=== PATIENT | female | born 2005 | race Caucasian/White ===

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

== ENCOUNTER 2025-04-15 19:21 | Inpatient (IN) | payer OTHER, SELFPAY ==
[2025-04-15 19:27] VITALS: BMI 27.8
[2025-04-15 19:48] LABS: Hematocrit 31.3 % (37-47); Hemoglobin 9.6 g/dL (12.0-15.0); Immature Granulocytes Count 0.100 X10^3/uL (0.0-0.0); Mean Corp Hgb Conc 30.7 g/dL (32-36); Mean Corpuscular Volume 73.5 fL (81-99); Mean Platelet Vol. 10.0 fl (6.2-12.0); NRBC Flagged by Analyzer 0 % (0-5); Platelet Count 266 K/mm3 (150-450); RBC Distribution Width CV 16.3 % (11.6-14.6); RBC Distribution Width SD 42.9 fl (35.1-43.9); Red Blood Count 4.26 M/mm3 (4.2-5.4); White Blood Count 13.7 K/mm3 (4.4-11.0)
[2025-04-15 20:07] VITALS: BP 124/83; PULSE 113; PULSE 96; RESP 16; TEMP 36.9; O2SAT 97
[2025-04-15 20:08] VITALS: TEMP 36.8
[2025-04-15 20:39] LABS: Syphilis Antibodies Nonreactive (Nonreactive)
[2025-04-15 22:36] LABS: Barbiturate Urine NEGATIVE (< 200 ng/mL); Benzodiazepine Urine NEGATIVE (< 200 ng/mL); PCP Urine NEGATIVE (< 25 ng/mL); THC Urine PRESUMPTIVE POSITIVE (< 50 ng/mL)
[2025-04-15] MEDS: Lactated Ringers 1,000 ML 50 ML IV (23:50)
[2025-04-16] VITALS (52 sets, daily range): BP systolic 98–141; BP diastolic 56–90; PULSE 84–134; RESP 12–18; TEMP 36.1–37.1; O2SAT 93–100
[2025-04-16] MEDS: 0.9% Normal Saline Single 100 ML IV.SOLN. INTRA-UTER (02:00)
--- NOTE | 2025-04-16 02:10 | PCM.HP.OB ---
HPI - General General Date of Admission: 04/15/25 HPI Narrative EKATERINA CORLEY, is a 19 F @ 40 weeks who presents for elective IOL PFSH PFS Medical History (Updated 04/16/25 @ 02:[address] Cecile Boyce MD) Depression Anxiety POTS (postural orthostatic tachycardia syndrome) unexplained bruising Chest pain History of frequent headaches Fatigue Anemia LOC (loss of consciousness) Home Medications ?Medication ?Instructions ?Recorded ?Last Taken ?Type ferrous sulfate 325 mg (65 mg 1 tab PO DAILY anemia 05/24/19 04/14/25 11:00 History iron) tablet 1 TAB control miscellaneous n/a 08/22/19 Unknown History Held on 04/15/25. Instructions: Order Changed aspirin 81 mg tablet,delayed 81 mg PO DAILY 04/15/25 04/14/25 11:00 History release 81 mg Allergy/AdvReac Type Severity Reaction Status Date / Time amoxicillin AdvReac Rash Verified 04/15/25 19:53 Social History (Updated 04/21/21 @ 00:[address] Giancarlo Jeffers, DO) Smoking Status: Never smoker alcohol intake: never substance use type: marijuana History Elective abortions Hx Para 0 Spontaneous abortions Hx # Term Pregnancies Ectopic pregnancies Hx # Pregnancies Multiple births # of living children NST FHR Rate Baby A Baseline: 140 Variability:: Moderate Accelerations:: 15 x 15 Decelerations:: None NST Reactive:: Yes FHR Category:: Category I Uterine Activity:: q1-3min Vital Signs Vital Signs Vital Signs: 04/15/25 20:07 04/15/25 20:07 04/15/25 20:07 Temperature Temperature Source Pulse Rate 113 H 96 Respiratory Rate Blood Pressure 124/83 H BP Systolic 124 BP Diastolic 83 Pulse Ox 04/15/25 20:07 04/15/25 20:07 04/15/25 20:07 Temperature Temperature Source Temporal Pulse Rate Respiratory Rate 16 Blood Pressure BP Systolic BP Diastolic Pulse Ox 97 04/15/25 20:07 04/15/25 20:08 04/16/25 00:33 Temperature 98.4 F 98.2 F Temperature Source Pulse Rate Respiratory Rate Blood Pressure 141/79 H BP Systolic 141 BP Diastolic 79 Pulse Ox 04/16/25 00:33 04/16/25 00:33 04/16/25 00:33 Temperature 98.1 F Temperature Source Pulse Rate 101 H Respiratory Rate Blood Pressure BP Systolic BP Diastolic Pulse Ox 98 04/16/25 00:33 Temperature Temperature Source Pulse Rate Respiratory Rate 16 Blood Pressure BP Systolic BP Diastolic Pulse Ox Weight Weight: 80.83 kg Body Mass Index (BMI) 27.8 Physical Exam Narrative VE: /-3 transcervical dennison placed Const alert and oriented x3 General Appearance: cooperative HEENT normocephalic GI GI Narrative: Gravid, non tender to palpation. OB / External & Speculum: external exam normal Extremity normal to inspection Skin no rashes or lesions noted Neuro oriented x3 and CN's II-XII intact bilaterally Psych Appearance: grossly normal Labs Labs Labs: Blood Type A POSITIVE Antibody Screen NEGATIVE Hct, (37-47) 31.3 % L Hgb, (12.0-15.0) 9.6 g/dL L Syphilis Total Ab, (Nonreactive) Nonreactive Miscellaneous Test Pending Assessment & Plan (1) 40 weeks gestation of : (2) Elective induction of labor planned: (3) Anemia affecting : PLAN: Plan Admit to L&D [place] FHR/TOCO Epidural if requested for pain Monitor VS Anticipate DENNISON/Cytotec then pitocin
[2025-04-16] MEDS: Oxytocin 15 Units/NS 250ml 15 UNITS/250 ML IV.SOLN 2 UNITS IV (05:53)
[2025-04-16] MEDS: Lactated Ringers 1,000 ML 50 ML IV (07:57)
--- NOTE | 2025-04-16 08:57 | PCM.PN.OB ---
Subjective Subjective Patient comfortable with contractions Objective Data Objective Data Vital Signs: Vital Signs Temp Pulse Resp BP Pulse Ox 97.0 F L 98 18 117/75 97 04/16/25 08:37 04/16/25 08:37 04/16/25 08:37 04/16/25 08:37 04/16/25 08:37 Weight: 178 lb 3.2 oz Body Mass Index (BMI) 27.8 Intake & Output: Intake and Output for Last 24 Hours 04/14/25 04/15/25 04/16/25 23:59 23:59 23:59 Intake Total 887.53 / 887.53 Balance 887.53 / 887.53 Lab / Micro Data 04/15/25 19:35 Labs: Laboratory Results - last 24 hr 04/15/25 19:35: WBC 13.7 H, RBC 4.26, Hgb 9.6 L, Hct 31.3 L, MCV 73.5 L, MCH 22.5 L, MCHC 30.7 L, RDW Std Deviation 42.9, RDW Coeff of Prudencio 16.3 H, Plt Count 266, MPV 10.0, Immature Gran % (Auto) 0.700, Neut % (Auto) 79.8 H, Lymph % (Auto) 12.7 L, [place] % (Auto) 5.5, Eos % (Auto) 1.2, Baso % (Auto) 0.1, Absolute Neuts (auto) 11.0 H, Absolute Lymphs (auto) 1.74, Nucleated RBC % 0, Syphilis Total Ab Nonreactive, Blood Type A POSITIVE, Antibody Screen NEGATIVE 04/15/25 22:00: Urine Opiates Screen NEGATIVE, U Buprenorphine Qual NEGATIVE, Ur Oxycodone Screen NEGATIVE, Urine Methadone Screen NEGATIVE, Urine Fentanyl Screen NEGATIVE, Ur Barbiturates Screen NEGATIVE, Ur Phencyclidine Scrn NEGATIVE, Ur Amphetamines Screen NEGATIVE, U Benzodiazepines Scrn NEGATIVE, Urine Cocaine Screen NEGATIVE, U Cannabinoids Screen PRESUMPTIVE POSITIVE Physical Exam Const alert, oriented x3 and no apparent distress Narrative: cvx - 2.5/70/-3, AROM clear fluid NST FHR Rate Baby A Baseline: 140 Variability:: Moderate Accelerations:: 15 x 15 Decelerations:: Variable Uterine Activity:: Q2-4 minutes Assessment & Plan (1) Elective induction of labor planned: (2) 40 weeks gestation of : PLAN: Plan Continue pitocin
[2025-04-16] MEDS: Vancomycin HCl 1,500 MG in 0.9% Normal Saline (500mL Bag) 500 ML 250 MG IV (09:11)
[2025-04-16] MEDS: fentaNYL 100 MCG/2 ML Ampul IV (09:57)
[2025-04-16] MEDS: 0.9% Saline Lock 10 ML Syringe IV (10:02)
[2025-04-16] MEDS: Lactated Ringers 1,000 ML 999 ML IV (11:03)
[2025-04-16] MEDS: fentaNYL-bupivacaine (epidural) 100 ML BAG EPIDURAL ×2 (11:38→15:56)
[2025-04-16] MEDS: Amnioinfusion- 0.9% NS 1,000 ML IV.SOLN. 1000 ML INTRA-UTER (14:06)
[2025-04-16] MEDS: Lactated Ringers 1,000 ML 200 ML IV (16:30)
--- NOTE | 2025-04-16 17:57 | PCM.PN.BLA ---
Progress Note Arrived to evaluate patient, no cervical change in 7 hrs, recurrent late decels, adequate contractions. Epidural not working well, feeling a lot of pain with contractions. Discussed with her recommendation for proceding with c/s based on persistent category 2 FHTs, remote from delivery and no cervical change with adequate contractions. R/b/a to c/s reviewed w/ her and support persons and questions answered. She agrees w/ plan. Team notified.
[2025-04-16] MEDS: Cefazolin 1 GM/5 ML Vial 2 GM IV (18:02)
--- NOTE | 2025-04-16 18:49 | EX.PCM.OBRPT ---
Assessment & Plan (1) delivery delivered: (2) 40 weeks gestation of : (3) heart deceleration: Maternal Data Information Gestational age: 40 weeks Operative Report (OB) Procedure Details Date of Procedure: 04/16/25 Procedure Start Time: 18:18 Procedure Stop Time: 18:47 Time of Delivery: 18:20 Pre-Operative Diagnosis: Other Other Pre-Operative diagnosis: intoleratnce of labor Post-Operative Diagnosis: Same as Pre-operative diagnosis Classification: NANDINI Type of Anesthesia: Spinal Antibiotic Given: Ancef 2 grams IV x1 and Zithromax 500 mg/5 mL X1 Drain: Schmitz to straight drain Estimated Blood Loss: 700 Fluids Replaced: 600 Findings Description of surgery: The patient was taken to the operating room. She was prepped and draped in the dorsal supine position with a leftward tilt. A Pfannenstiel skin incision was made approximately 2 cm above the symphysis pubis and carried through to underlying layer fascia with the scalpel. The fascia was incised incised in the midline and extended laterally with blunt dissection. The fascial incision was made in the midline and extended with blunt dissection.. The rectus muscles were in the midline and the peritoneum was entered bluntly. The peritoneal incision was stretched and the bladder blade was placed. The uterine incision was made in a low transverse fashion with the scalpel and extended superiorly and inferiorly with blunt dissection. The amniotic membranes were ruptured bluntly and clear amniotic fluid returned. The infant's head was brought to the incision in the flexed position and delivered without difficulty. The remainder of the was delivered with gentle traction and fundal pressure in the standard fashion. The mouth and nares were bulb suctioned. The cord was clamped and cut as the was stimulated. Cord clamping was not delayed. The was handed off to the waiting nursing staff. The placenta was delivered with fundal massage and gentle traction in the standard fashion. The uterus was exteriorized and cleared of all clots and debris. . The uterine incision was closed with #1 Vicryl in a running locked fashion. A second layer of the same suture was used in an imbricating fashion. The incision was examined and was found to be hemostatic. The uterus was placed back into the peritoneal cavity and hemostasis was again confirmed. The rectus muscles were examined and any bleeding was Bovie cauterized. The parietal peritoneum and rectus muscles were closed en bloc with an 0 Vicryl running suture. The rectus fascia was examined and any bleeding was Bovie cauterized and the rectus fascia was closed with 1 Vicryl suture in a running standard fashion. The subcutaneous tissue was examining and any bleeding was Bovie cauterized. The subcutaneous tissue was reapproximated with 3-0 Vicryl suture. The skin was closed in a subcuticular fashion by the DIRECTOR AIRPORT OPERATIONS with me present in the labor and delivery suite. I performed the remainder of the procedure with assistance. All sponge, lap, and needle counts were correct. The patient was taken to her room for recovery in a stable condition. Surgical findings: Normal uterus tubes and ovaries normal placenta with three-vessel cord Presentation: Vertex Amniotic Membrane Rupture Type: Artificial Amniotic Fluid Description: Clear Placental Delivery Description: Expressed Placenta Disposition: Sent to Pathology Specimen collected: No Cord Vessel Description: 3 Vessels Cord Entanglement: Around neck x 1, loose Nuchal Cord Compression: Without compression Cord Gases: ABG and VBG Infant A gender: Male ([place]) (1 minute): 2 (5 minute): 9 Delayed Cord Clamping: No Business Operations Specialist environmental services floor tech: Yes Goodwill Representative: Jane Cooney Tasks completed by first aid teacher: Closing, Altering tissue and Retracting Additional inside sales assistant?: No Complications Complications: No Admit VTE Documentation VTE Present on Admission: No VTE Mechan Device Prophylaxis: SCD's VTE Pharm Prophylaxis Ordered: No
[2025-04-16] MEDS: Oxytocin 15 Units/NS 250ml 15 UNITS/250 ML IV.SOLN 83 UNITS IV (19:15)
--- NOTE | 2025-04-16 19:51 | PLAC_PTH ---
PATIENT: EKATERINA CORLEY LOC: [facility] U#:[id number] AGE/SX: 19/F ROOM: WP003 RE04/15/[address]: Dr. Juana Alvarez MD : 2005 BED: 1 DIS: 04/18/2025 SPEC #: [id number] RECD: 04/16/25 23:24 STATUS: RUI REQ #: [id number] TYSON: 04/16/25 19:[address]: Juana Alvarez DEPT: SURGICAL PATHOLOGY RECD BY: Corona Munoz ENTERED: 04/17/25 10:37 SP TYPE: PLACENTA OTHR DR: Dr. Katie Briones, DO Tissues: A - Placenta, NOS Procedures: Surgery Specimen Level V HEADER OPERATION: Primary section PRE-OP DIAGNOSIS: decelerations TISSUE SUBMITTED: A- Placenta MICROSCOPIC DIAGNOSIS A. Placenta, 3rd trimester (40 weeks), section: - Mature placenta with mild acute chorionitis. - 541.6 grams (50th percentile). - Tri-vessel umbilical cord without inflammation. MICROSCOPIC DESCRIPTION Slides are reviewed. GROSS DESCRIPTION A. Received in formalin labeled with the patient's name and date of is 541.6 g, 18.2 x 16.4 x 3.1 cm irregular placental disc. The membranes are hess-pink, translucent with both marginal and circummarginate insertion (75% / 25%, respectively). The attached, trivascular umbilical cord measures 48.2 cm in length by 1.0-1.6 in diameter and inserts eccentrically, 4.4 cm from the disc edge; with a focal, possible tether at the insertion of the umbilical cord. The surface is purple-blue with engorged, arborizing vasculature and focal subchorionic fibrin (<5%). The maternal surface is dark red with a focally torn and frayed appearance and diffuse calcifications (>50%) and loosely adherent blood clot, predominantly near the periphery. When reapproximated, the maternal surface appears grossly complete. Sectioning reveals dark red, gritty cut surfaces with focal fibrin (<5%). Business Analysis Professional sections are submitted as follows: A1: Membrane rollA2: Umbilical cordA3: PlacentaA4: Placenta SC 04/17/2025PT:[id number]
[2025-04-16] MEDS: Ketorolac 30 MG/ML Syringe IV (20:29)
[2025-04-16] MEDS: Lactated Ringers 1,000 ML 100 ML IV (20:35)
[2025-04-16 23:18] LABS: Pathology Specimen OB SEE PATHOLOGY REPORT
--- NOTE | 2025-04-16 23:56 | NURSING ---
Unable to print or send cardiac monitoring due to equipment malfunction-normal sinus or sinus tachycardia during recovery period
[2025-04-17] VITALS (7 sets, daily range): BP systolic 113–126; BP diastolic 73–85; PULSE 101–113; RESP 16; TEMP 36.5–37.1; O2SAT 98–100
[2025-04-17] MEDS: Ketorolac 30 MG/ML Syringe IV ×3 (02:54→15:48)
[2025-04-17 06:43] LABS: Hematocrit 26.1 % (37-47); Hemoglobin 8.1 g/dL (12.0-15.0); Mean Corp Hgb Conc 31.0 g/dL (32-36); Mean Corpuscular Volume 73.3 fL (81-99); Mean Platelet Vol. 10.2 fl (6.2-12.0); Platelet Count 220 K/mm3 (150-450); RBC Distribution Width CV 16.5 % (11.6-14.6); RBC Distribution Width SD 44.0 fl (35.1-43.9); Red Blood Count 3.56 M/mm3 (4.2-5.4); White Blood Count 24.3 K/mm3 (4.4-11.0)
--- NOTE | 2025-04-17 08:41 | PCM.PN.OB ---
Subjective Subjective Doing well. Ambulating and voiding without difficulty. Mild lochia. Breast feeding. Objective Data Objective Data Vital Signs: Vital Signs Temp Pulse Resp BP Pulse Ox O2 Del Method 98 F 110 H 16 120/73 98 Room Air 04/17/25 03:34 04/17/25 03:34 04/17/25 03:34 04/17/25 03:34 04/17/25 03:34 04/17/25 03:34 Oxygen Delivery Method Room Air Weight: 80.83 kg Body Mass Index (BMI) 27.8 Intake & Output: Intake and Output for Last 24 Hours 04/15/25 04/16/25 04/17/25 23:59 23:59 23:59 Intake Total 4131.87 / 4131.87 741.67 / 741.67 Output Total 1500 / 1500 300 / 300 Balance 2631.87 / 2631.87 441.67 / 441.67 Lab / Micro Data 04/17/25 06:30 Labs: Laboratory Results - last 24 hr 04/17/25 06:30: WBC 24.3 H, RBC 3.56 L, Hgb 8.1 L, Hct 26.1 L, MCV 73.3 L, MCH 22.8 L, MCHC 31.0 L, RDW Std Deviation 44.0 H, RDW Coeff of Prudencio 16.5 H, Plt Count 220, MPV 10.2 ROS Constitutional Constitutional: Denies headache(s) Cardiovascular Cardiovascular: Denies chest pain or dyspnea Gastrointestinal Gastrointestinal: Denies nausea or vomiting Genitourinary Genitourinary: Denies dysuria Physical Exam Const alert, oriented x3 and no apparent distress General Appearance: cooperative and comfortable Eyes PERRL and EOMs intact bilaterally Resp normal respiratory effort GI soft to palpation and non-tender Uterus Palpation: uterus fundus firm ( below umbilicus) Extremity normal to inspection and full ROM Neuro oriented x3 and CN's II-XII intact bilaterally Psych mental status grossly normal Assessment & Plan (1) delivery delivered: PLAN: Plan Routine care
[2025-04-17] MEDS: Senna/Docusate Sodium 1 Tablet PO (09:25)
[2025-04-17] MEDS: 0.9% Saline Lock 10 ML Syringe IV ×2 (09:26→15:48)
[2025-04-18 03:53] VITALS: BP 122/86; PULSE 110; RESP 16; TEMP 36.7; O2SAT 98
--- NOTE | 2025-04-18 07:50 | PCM.PN.OB ---
Subjective Subjective Doing well. Ambulating and voiding without difficulty. Mild lochia. Breast feeding. Objective Data Objective Data Vital Signs: Vital Signs Temp Pulse Resp BP Pulse Ox O2 Del Method 98.0 F 110 H 16 122/86 H 98 Room Air 04/18/25 03:53 04/18/25 03:53 04/18/25 03:53 04/18/25 03:53 04/18/25 03:53 04/18/25 03:53 Oxygen Delivery Method Room Air Weight: 80.83 kg Body Mass Index (BMI) 27.8 Intake & Output: Intake and Output for Last 24 Hours 04/16/25 04/17/25 04/18/25 23:59 23:59 23:59 Intake Total 4131.87 / 4131.87 741.67 / 741.67 Output Total 1500 / 1500 1050 / 1050 Balance 2631.87 / 2631.87 -308.33 / -308.33 Lab / Micro Data 04/17/25 06:30 ROS Constitutional Constitutional: Denies headache(s) Cardiovascular Cardiovascular: Denies chest pain or dyspnea Gastrointestinal Gastrointestinal: Denies nausea or vomiting Genitourinary Genitourinary: Denies dysuria Physical Exam Const alert, oriented x3 and no apparent distress General Appearance: cooperative and comfortable Eyes PERRL and EOMs intact bilaterally Resp normal respiratory effort GI soft to palpation and non-tender GI Narrative: soft, moderate distention, fundus firm, appropriately tender. Abdominal bandage clean dry and intact Uterus Palpation: uterus fundus firm ( below umbilicus) Extremity normal to inspection and full ROM Neuro oriented x3 and CN's II-XII intact bilaterally Psych mental status grossly normal Assessment & Plan (1) delivery delivered: PLAN: Plan Discharge home
--- NOTE | 2025-04-18 07:51 | PCM.DC.SUM ---
Providers Date of Admission: 04/15/25 Date of Discharge: 04/18/25 Primary Care Physician: Dr. Katie Briones DO Reason For Visit: PRIMARY C SECTION Diagnosis Discharge Diagnosis (1) delivery delivered: Status: Acute Code(s): O82 - Encounter for delivery without indication Plan Discharge home Medications at Discharge Home Medications ferrous sulfate 325 mg (65 mg iron) tablet 1 tab PO DAILY anemia 05/24/19 Hospital Course Operations section Procedures None Summary of Care Provided Minutes Spent on Discharge: 20 Hospital Course: Primary . Breast feeding. No complications Physical Exam Const alert General Appearance: cooperative GI GI Narrative: soft, moderate distention, fundus firm, appropriately tender. Abdominal bandage clean dry and intact Weight / BMI Weight Weight: 80.83 kg Body Mass Index (BMI) 27.8 ABG / Lab / Microbiology Data 04/17/25 06:30 D/C Instructions May resume sexual activity in: 4-6 weeks Lifting Restrictions: 20 pounds Additional Activity Instructions: Nothing in the vagina for 4-6 weeks. You may return to work/school in 6 weeks. Call your doctor if your incision/area has: Continuous Slow Oozing, Sudden Increased Bleeding, Increased Pain/ Swelling, Increased Redness and Foul Smelling Discharge Call your doctor if you observe: Fever of 101 or Higher and Using more than 1 pad per hour (for 2 hours) Suture Line Care: Avoid Pulling/Pushing and Avoid Pinching/Bending Cleanse incision/area with: Keep Dressing Clean & Dry DC O2, CPAP, BIPAP Needs Home O2 Discharge instructions: No Please Follow Up With: Richelle Singh MD When: Call to make an appointment for an incision check in 1-2 [phone]. You will need a post check in 6 weeks. Meaningful Use Info Meaningful Use Meaningful Use Diagnoses (Choose all that apply): None applicable Discharge Plan Admission Admit Date/Time: 04/15/25 19:21 Primary Reason for Your Visit: Labor Attending Provider: Juana Alvarez Primary Care Provider: Katie Briones Discharge Orders/Prescriptions Prescriptions: Continued ferrous sulfate 325 MG tablet 1 tab PO DAILY Patient Comments: TAKE 1 TABLET BY MOUTH TWICE A DAY WITH MEALS Discontinued control miscellaneous aspirin 81 mg tablet,delayed release (DR/EC) 81 mg PO DAILY Referrals / Follow Up: Katie Briones DO [Primary Care Provider, Pediatrics] Disposition Disposition (needs filled in before D/C Order can be placed): Home, Self Care
[2025-04-18 08:08] VITALS: BP 131/88; PULSE 106; RESP 18; TEMP 37.2; O2SAT 98
[2025-04-18] MEDS: Senna/Docusate Sodium 1 Tablet PO (10:11)
--- NOTE | 2025-04-23 14:59 | NURSING ---
F/up call attempt, no ans, LVM
--- NOTE | 2025-04-26 11:39 | CASEMGMT ---
Social Work Assessment Labor and Delivery Unit Patient Address: [place] [address] Phone number: [phone] Date of Referral: 04/15/25 Time of Referral:? 2000 Referred By: Dr. Hill Date of Intervention: ?04/17/25? Time of Intervention:? 1500 Reason for Referral:? mental health Sw completed chart review and acknowledges social work consult due to maternal mental health. Sw presented to bedside and introduced self to mother of baby, MYESHA- Jannet and father of baby, CHRISTIANO- Richy. Sw explained reason for sw involvement and completed psychosocial assessment. Sw asked FOB to step out of room briefly so that MOB could complete [place] Depression Scale, FOB did so respectfully and peacefully. History obtained from: medical records, MOB and FOB Household composition: Currently residing in the home is MOB, FOB and baby when ready for discharge. Parents deny any problems or concerns with home, stating it is safe and secure. Patient's parent/guardian status:? ?MYESHA states that she and CHRISTIANO have been together for 1.5 years after being introduced to each other by mutual friends. No concerns reported of domestic violence or intimate partner violence, MYESHA denies as well. Medical History: ?MYESHA is 19 year old female who is 1, para 0- now 1 following labor and delivery of . MYESHA received routine care during with [facility]. MYESHA presented to hospital for elective induction of labor and delivered baby on 04/15/25 via at 40 weeks gestation. Baby boy, named Vinnie Johnson, was born weighing 7lbs 1oz with apgars of 2 and 9 at one and five minutes of life, respectfully. MYESHA states that she is breast feeding and baby will be followed by Dr. Lynch for pediatric care. Educational Status:?MOB states that she completed the 11th grade, and FOB obtained some college education. No problems with reading, learning or comprehension. Financial Status: FOB works as a product support technician and MOB is going to be a stay at home mom. Supplies:??All necessary baby supplies obtained, including: car seat, safe sleep space, clothes, diapers and wipes. Childcare/Caregiver(s):? MOB will be the primary caregiver to baby along with GOPIB when he is not working. Transportation:?? Both parents have their drivers license and reliable means of transportation. Programs/Agencies Involved: ??MOB has insurance provided through her father, and they have plans to add baby to FOB's insurance. ? Children Services/Legal Issues:?No prior involvement with children services. Kurt explained that sw is mandated to make referral to [facility] due to maternal use of THC during . MOB expressed understanding. ?? Behavioral Health Issues: ??Mental Health History:?FOB denies mental health history. MOB has been diagnosed with anxiety, and depression. She is not prescribed any medications to help her manage her symptoms and is not connected to any community mental health providers. ? Substance Use History:??MOB states that she did use THC throughout her . MOB states that she used THC to help with pain from and to help manage her nausea. Family History:?Parents deny family history of substance use or significant mental health history. ? Drug Screens: ??MOB's urine screen for THC was presumptive positive, baby's urine screen was presumptive positive and meconium was positive for THC. Family/Social Stressors:? Parents deny any issues, stressors or concerns at this time. Support Systems: MOB states that her maternal grandma and her grandpa are her biggest supports Depression/Shaken Baby/Safe Sleeping:? Sw educated parents on signs and symptoms of baby blues and mood and anxiety disorders to be mindful of going into this period. Sw explained to MOB that she is more at risk due to her mental health history. Sw encouraged MOB to reach out to her OBGYN if she were to struggle with symptoms that start to interfere with her ability to care for herself or her baby. MOB expressed understanding. MOB states that FOB will be able to recognize if MOB is struggling and would know how to help her. MOB completed [place] Depression Scale, her score was a 7, which is close to meeting the threshold for depression/ anxiety. MOB states that she feels comfortable talking to her OBGYN or getting connected to a mental health professional if warranted. Sw educated MOB on shaken baby prevention and ABCs of safe sleep, MOB expressed understanding. ASSESSMENT:?MOB and baby admitted following labor and delivery. MOB with mental health history of anxiety and depression, and substance use history of THC throughout . MOB and baby with positive toxicology of THC at time of delivery. MOB is not connected to any community resources, but reports that she is open to doing so if she feels as though she is struggling during this period. MOB not prescribed any medications to help manage her symptoms. MOB and FOB open to meeting with sw. Both parents were observed to hold baby lovingly and attentively. Parents were talkative and receptive to meeting with sw. MOB reports that since baby has been born she feels a connection to baby. MOB states that she feels happy, denies feeling down, anxious, tearful or sad. Parents report to having all necessary baby items and natural supports in place. PLAN:? No other services requested or indicated. MOB and baby to be discharged when medically ready. Parents were provided literature regarding: signs and symptoms of baby blues and mood and anxiety disorders, Help Me Grow, shaken baby prevention, ABCs of safe sleep and a list of county resources that are available for them should any needs present themselves. Richard Thurston, GRAVITY MANAGER, DIRECTOR OF PUPIL PERSONNEL PROGRAM
== END 2025-04-18 12:05 | disposition home or self-care (01) | DRG 788 ==
PROVIDERS: Obstetrics & Gynecology; Admitting Provider Obstetrics & Gynecology; PCP Pediatrics; Visit Provider Obstetrics & Gynecology
DX: O99.02 Anemia complicating childbirth (principal); O69.81X0 Labor and delivery complicated by cord around neck, without compression, not applicable or unspecified; O76 Abnormality in fetal heart rate and rhythm complicating labor and delivery; Z79.82 Long term (current) use of aspirin; Z3A.40 40 weeks gestation of pregnancy; Z37.0 Single live birth
CPT/HCPCS: 36415; 59025; 59050; 80307; 85025; 85027; 86780; 86850; 86900; 86901; 88307; 99221; A4216; G0378; J2405